=== PATIENT | female | born 1980 | race African-American/Black ===

== ENCOUNTER 2017-02-19 13:56 | Emergency (ER) | payer OTHER ==
[~2017-02-19] VITALS: Ht 175.3 cm; Wt 60.3 kg
[2017-02-19 14:32] VITALS: BP 111/68
== END 2017-02-19 14:51 | disposition home or self-care (01) ==
LOC: ER 13:58
DX: L29.0 Pruritus ani (principal); J45.909 Unspecified asthma, uncomplicated; K60.2 Anal fissure, unspecified; Z88.0 Allergy status to penicillin
CPT/HCPCS: 99282; A4606 ×2; Z7610 ×2

== ENCOUNTER 2017-10-11 15:24 | Emergency (ER) | payer OTHER ==
[~2017-10-11] VITALS: Ht 175.3 cm; Wt 62.6 kg
[2017-10-11 15:25] VITALS: BP 115/72
[2017-10-11] MEDS ORDERED: predniSONE 20 MG TABLET PO ONE (16:00)
[2017-10-11] MEDS ORDERED: predniSONE 20 MG TABLET ONE (16:02)
== END 2017-10-11 16:12 | disposition home or self-care (01) ==
LOC: ER 15:25
DX: T78.3XXA Angioneurotic edema, initial encounter (principal); J45.909 Unspecified asthma, uncomplicated; Z88.0 Allergy status to penicillin
CPT/HCPCS: A4606; Z7610

== ENCOUNTER 2020-02-21 04:04 | Emergency (ER) | payer OTHER ==
[~2020-02-21] VITALS: Ht 175.3 cm; Wt 61.7 kg
--- NOTE | 2020-02-21 04:18 | NUR ---
BIBRA FROM HOME FOR C/O N/V, PT ALSO W/ C/O GNERALIZED ABD PAIN AND "A LITTLE BIT OF DIARRHEA". AFEBRILE. VSS. PT WAS PLACED ON A MONITOR, REPORTED UNABLE TO PROVIDE URINE SAMPLE AT THIS TIME. WILL CONT TO MONITOR.
[2020-02-21] MEDS ORDERED: ONDANSETRON HCL/PF 4 MG/2 ML VIAL ONE ×3 (04:22→06:40)
--- NOTE | 2020-02-21 04:22 | NUR ---
BLOOD COLLECTED AND SENT TO LAB.
[2020-02-21] MEDS ORDERED: IV NS 0.9% 1,000 ML BAG IV ONE (04:30)
[2020-02-21] MEDS ORDERED: ONDANSETRON HCL/PF 4 MG/2 ML VIAL IVP ONE (04:30)
[2020-02-21 04:32] LABS: BASOPHILS % (AUTO) 0.2 % (0.0-2.0); EOSINOPHILS % (AUTO) 0.1 % (0.0-6.0); HEMATOCRIT 45 % (33-45); HEMOGLOBIN 15.2 g/dL (11.5-14.8); LYMPHOCYTES # (AUTO) 1.1 /CMM (0.8-4.8); LYMPHOCYTES % (AUTO) 8.8 % (20.0-44.0); MEAN CORPUSCULAR HGB CONC 34 g/dl (31.0-36.0); MEAN CORPUSCULAR VOLUME 96 fL (82-100); MONOCYTES # (AUTO) 0.5 /CMM (0.1-1.30); MONOCYTES % (AUTO) 4.4 % (2.0-12.0); NEUTROPHILS # (AUTO) 10.6 /CMM (1.8-8.9); NEUTROPHILS % (AUTO) 86.5 % (43.0-81.0); PLATELET COUNT (AUTO) 324 /CMM (150-450); RED BLOOD CELL COUNT(AUTO) 4.73 MIL/uL (4.0-5.2); WHITE BLOOD COUNT (AUTO) 12.3 K/uL (4.3-11.0)
--- NOTE | 2020-02-21 04:38 | NUR ---
PATIENT'S BROTHER # [phone], PLEASE CALL HIM FOR UPDATES
--- NOTE | 2020-02-21 04:44 | NUR ---
PT SIGNED A WAIVER TO PROCEED W/ THE CT SCAN
--- NOTE | 2020-02-21 04:47 | NUR ---
PATIENT TAKEN TO CT.
--- NOTE | 2020-02-21 04:54 | NUR ---
PATIENT STATES SHE STILL FEELS NAUSEOUS, MD NOTIFIED.
[2020-02-21] MEDS ORDERED: ONDANSETRON HCL/PF 4 MG/2 ML VIAL IV ONE ×2 (05:00→07:00)
[2020-02-21 05:08] LABS: ALBUMIN 5.3 g/dL (3.4-5.0); BILIRUBIN,DIRECT 0.2 mg/dL (0.0-0.2); BILIRUBIN,TOTAL 0.9 mg/dL (0.2-1.0); CALCIUM, SERUM 10.5 mg/dL (8.5-10.1); CREATININE 1.2 mg/dL (0.6-1.3); POTASSIUM 3.5 mmol/L (3.5-5.1); TOTAL PROTEIN, SERUM 8.8 g/dL (6.4-8.2)
[2020-02-21] MEDS ORDERED: METOCLOPRAMIDE HCL 10 MG/2 ML VIAL ONE (05:15)
--- NOTE | 2020-02-21 05:20 | NUR ---
PATIENT STATES SHE STILL FEELS NAUSEOUS, MD NOTIFIED.
[2020-02-21] MEDS ORDERED: METOCLOPRAMIDE HCL 10 MG/2 ML VIAL IV ONE (05:30)
--- NOTE | 2020-02-21 05:30 | NUR ---
Addendum: Metoclopramide 10 mg and 2 mL via-given as IV push; slow over 2 minutes IV site: Right AC #20, port #1
--- NOTE | 2020-02-21 06:42 | NUR ---
PATIENT STATES SHE STILL FEELS NAUSEOUS, MD NOTIFIED.
--- NOTE | 2020-02-21 07:26 | NUR ---
CALLED BROTHER, NO ON ANSWERED. SPOKE WITH MOTHER TO CALL PATIENT'S BROTHER TO PICK PATIENT UP.
--- NOTE | 2020-02-21 07:38 | NUR ---
Patient discharged to home in stable condition. Written and verbal after care instructions given. Patient verbalizes understanding of instruction.
--- NOTE | 2020-02-21 07:38 | NUR ---
IV removed. Catheter intact and site benign. Pressure and 4x4 applied to site. No bleeding noted.
[2020-02-21 07:40] VITALS: BP 124/79
== END 2020-02-21 07:40 | disposition home or self-care (01) ==
LOC: ER 04:07
DX: K52.9 Noninfective gastroenteritis and colitis, unspecified (principal); J45.909 Unspecified asthma, uncomplicated; Z88.0 Allergy status to penicillin
CPT/HCPCS: 36415; 74176; 80048; 80076; 83690; 85025; 96361; 96374; 96375; 96376; 99284; A4216; A6253; J2405 ×3; J2765; J7030